=== PATIENT | female | born 1960 | race Caucasian/White ===

== ENCOUNTER 2025-04-07 07:32 | Emergency (ER) | payer OTHER, MEDICAID ==
[~2025-04-07] VITALS: Ht 149.9 cm; Wt 70.0 kg
[2025-04-07 07:37] VITALS: TEMP 97.3
[2025-04-07 08:08] LABS: PLATELET COUNT (AUTO) 173 K/uL (150-450); RED BLOOD CELL COUNT(AUTO) 4.46 MIL/uL (4.00-5.20); RED CELL DISTRIBUTION WIDTH 13.5 % (11.5-14.5); WHITE BLOOD COUNT (AUTO) 5.9 K/uL (4.5-11.0)
[2025-04-07 08:18] LABS: CALCIUM, TOTAL 8.5 mg/dL (8.8-10.5); CREATININE 0.56 mg/dL (0.60-1.30); GLOMERULAR FILTR. RATE CALC > 60 mL/min (>60); GLUCOSE,RANDOM 132 mg/dL (70-110); SODIUM SERUM 140 mmol/L (136-145); UREA NITROGEN, BLOOD 9 mg/dL (7-18)
[2025-04-07 08:22] LABS: CREATINE KINASE, TOTAL ONLY 73 U/L (26-192)
[2025-04-07 08:26] LABS: TROPONIN I-HIGH SENSITIVITY 6 ng/L (<51)
[2025-04-07] MEDS: KETOROLAC TROMETHAMINE 60 MG/2 ML VIAL IM ONE (08:57)
[2025-04-07] MEDS: LIDOCAINE 5% TRANSDERMAL PATCH TD ONE ×2 (08:58→09:35)
[2025-04-07 09:23] LABS: APPEARANCE,URINE CLEAR (CLEAR); GLUCOSE, URINE (UA) NEGATIVE (NEGATIVE); LEUKOCYTE ESTERASE ,URINE TRACE (NEGATIVE); NITRATE,URINE NEGATIVE (NEGATIVE); OCCULT BLOOD,URINE NEGATIVE (NEGATIVE); SPECIFIC GRAVITIY, URINE 1.009 (1.003-1.030)
[2025-04-07 09:27] LABS: SQUAMOUS EPITHELIAL CELL,UR Rare /LPF (None Seen)
[2025-04-07] MEDS ORDERED: LIDO-57 TP (09:29)
[2025-04-07] MEDS ORDERED: METH-659 PO (09:29)
[2025-04-07 09:57] VITALS: BP 175/82; PULSE 75; RESP 18; O2SAT 98
== END 2025-04-07 10:01 | disposition home or self-care (01) ==
LOC: EMS 07:32
DX: S29.012A Strain of muscle and tendon of back wall of thorax, initial encounter (principal); R07.89 Other chest pain; E11.9 Type 2 diabetes mellitus without complications; E78.00 Pure hypercholesterolemia, unspecified; I10 Essential (primary) hypertension; X58.XXXA Exposure to other specified factors, initial encounter; Y93.89 Activity, other specified; Y92.89 Other specified places as the place of occurrence of the external cause; Y99.8 Other external cause status
CPT/HCPCS: 99285; 71045; 80048; 81001; 82550; 82962; 83690; 83880; 84484; 85025; 36415; 93005; 96372; J1885